=== PATIENT | male | born 1995 | race Caucasian/White ===

== ENCOUNTER 2017-09-13 20:36 | Emergency (ER) | payer OTHER ==
[2017-09-13 20:48] VITALS: BP 145/65
[2017-09-13] MEDS ORDERED: Lidocaine 1% MPF* 2 ML VIAL INJ ONE (20:56)
--- NOTE | 2017-09-13 21:23 | ED ---
Laceration/Wound HPI - HPI Summary HPI Summary: 21 YO M CUT RT 5TH FINGER WITH KNIFE WHILE CUTTING CHICKEN. BLEEDING CONTINUES WITHOUT DIRECT PRESSURE. REPORTS UTD WITH TD. - History of Current Complaint Stated Complaint: FINGER LACERATION Time Seen by Provider: 09/13/17 20:55 Hx Obtained From: Patient Mechanism of Injury: Sharp/Blunt Trauma Onset/Duration: Sudden Onset Aggravating: Movement Alleviating: Compression Timing: Constant Onset Severity: Moderate Current Severity: Mild - Allergy/Home Medications Allergies/Adverse Reactions: Allergies Allergy/AdvReac Type Severity Reaction Status Date / Time bee Allergy swelling, Uncoded 09/13/17 20:48 hives Home Medications: Home Medications Methylphenidate HCl [Concerta] 36 mg PO DAILY 09/13/17 [History Confirmed ] PMH/Surg Hx/FS Hx/Imm Hx Infectious Disease History: No Infectious Disease History: Denies: Traveled Outside the [place] in Last 30 Days - Social History Alcohol Use: Occasionally Substance Use Type: Reports: None Smoking Status (MU): Never Smoked Tobacco Review of Systems Constitutional: Negative Eyes: Negative ENT: Negative Cardiovascular: Negative Respiratory: Negative Gastrointestinal: Negative Genitourinary: Negative Musculoskeletal: Negative Positive: Other - LACERATION TIP OF RT 5TH FINGER Neurological: Negative Psychological: Normal All Other Systems Reviewed And Are Negative: Yes Physical Exam Triage Information Reviewed: Yes Vital Signs On Initial Exam: Initial Vitals Temp Pulse Resp BP 98.3 F 86 16 145/65 09/13/17 20:45 09/13/17 20:45 09/13/17 20:45 09/13/17 20:45 Vital Signs Reviewed: Yes Appearance: Positive: Well-Appearing Skin: Positive: Other - 1CM LACERATION TIP OF RT 5TH FINGER. BLEEDING STOPS WITH DIRECT PRESSURE. NO BONE VISIBLE. Eyes: Positive: Normal Neck: Positive: Supple Musculoskeletal: Positive: Normal, Strength/ROM Intact Neurological: Positive: Normal Psychiatric: Positive: Normal AVPU Assessment: Alert Procedures - Laceration/Wound Repair 1 Location: upper extremity - RT 5TH FINGER TIP Description: Linear Anesthesia: Local, 1.0% Length, Depth and Shape: 1CM SC Betadine Prep?: No - KIN AGUIAR Laceration/Wound Explored: clean Closure: Single Layer Debridement: NONE Suture Type: Prolene - 5-0 Number of Sutures: 3 Layer Closure?: No Sterile Dressing Applied?: Yes Diagnostics - Vital Signs Vital Signs Temp Pulse Resp BP 09/13/17 20:45 98.3 F 86 16 145/65 - Laboratory Lab Statement: Any lab studies that have been ordered have been reviewed, and results considered in the medical decision making process. Laceration Repair Course/Dx - Clinical Impression Provider Diagnoses: LACERATION RT 5TH FINGER Discharge - Discharge Plan Condition: Stable Disposition: HOME Patient Education Materials: Care For Your Stitches (ED), Finger Laceration (ED ) Referrals: [facility] [[place]] Additional Instructions: SUTURES OUT IN 8-10 DAYS. FOLLOW UP WITH YOUR DOCTOR. GET RECHECKED FOR ANY WORSENING OF YOUR CONDITION/SIGNS OF INFECTION OR QUESTIONS OR CONCERNS.
== END 2017-09-13 21:36 | disposition home or self-care (01) ==
LOC: UCEAST 20:36
DX: S61.216A Laceration without foreign body of right little finger without damage to nail, initial encounter (principal); W26.0XXA Contact with knife, initial encounter; Y93.G1 Activity, food preparation and clean up; Y92.9 Unspecified place or not applicable
CPT/HCPCS: 12001; 99201; G0463